=== PATIENT | female | born 1985 | race Two or more races ===

== ENCOUNTER 2017-03-26 13:54 | Emergency (ER) | payer OTHER ==
[2017-03-26 14:27] LABS: COLOR YELLOW; LEUKOCYTE ESTERASE,URINE NEGATIVE (NEGATIVE); NITRITE,URINE NEGATIVE (NEGATIVE)
[2017-03-26 14:37] LABS: MUCUS TRACE /lpf (NONE-1+)
[2017-03-26] MEDS ORDERED: ONDANSETRON DISINTEGRATING 4 MG TAB PO ONE (15:34)
[2017-03-26] MEDS ORDERED: NS 1,000 ML IV ONE (16:22)
--- NOTE | 2017-03-26 16:32 | EDPHY ---
H & P Stated Complaint: lower back pain, vomiting since yesterday--feels like previous kid stones HPI/ROS: Chief complaint: Back pain, nausea and vomiting History of present illness: This is a 31-year-old female who presents to the emergency department for evaluation of back pain and nausea and vomiting. Patient reports the onset of symptoms yesterday. They appear more pronounced on the left. She has a history kidney stones, at least 3 and they have always passed on their own without intervention needed, this feels similar to past episodes. She did have hydrocodone from a previous kidney stone which she took and symptoms have improved and she is now nearly pain free. Nausea persists. She denies precipitating factors. She denies other alleviating factors. She denies other associated signs or symptoms including no fevers, no diarrhea or constipation, no urinary symptoms. Patient is visiting from [place], she was supposed to fly home last night but because of symptoms she didn't, she will try to fly home tomorrow morning. Review of systems: A 10 point review of systems was obtained and other than described above was negative - Personal History LMP (Females 10-55): 1-7 Days Ago Current Tetanus/Diphtheria Vaccine: Unsure Current Tetanus Diphtheria and Acellular Pertussis (TDAP): Unsure - Medical/Surgical History Hx Asthma: No Hx Chronic Respiratory Disease: No Hx Diabetes: No Hx Cardiac Disease: No Hx Renal Disease: No Hx Cirrhosis: No Hx Alcoholism: No Hx HIV/AIDS: No Hx Splenectomy or Spleen Trauma: No Other PMH: kidney stones - Social History Smoking Status: Never smoked - Physical Exam Exam: General Appearance: Alert, nontoxic, resting comfortably in bed. Eyes: Pupils equal and round no pallor or injection. ENT, Mouth: Mucous membranes moist. Respiratory: There are no retractions, lungs are clear to auscultation. Cardiovascular: Regular rate and rhythm. Gastrointestinal: Abdomen is soft and nontender, no masses, bowel sounds normal. Genitourinary: No CVA tenderness. Neurological: Alert and oriented x4. Strength and sensation intact and symmetrical. Skin: Warm and dry, no rashes. Musculoskeletal: Neck is supple nontender. Extremities are symmetrical, full range of motion. Psychiatric: Patient is oriented X 3, there is no agitation. Constitutional: Initial Vital Signs Temperature (C) 36.8 C 03/26/17 14:06 Heart Rate 102 H 03/26/17 14:06 Respiratory Rate 16 03/26/17 14:06 Blood Pressure 93/68 L 03/26/17 14:06 O2 Sat (%) 97 03/26/17 14:06 O2 Delivery Mode Room Air Allergies/Adverse Reactions: cefuroxime [From Ceftin] Allergy (Verified 03/26/17 14:05) Home Medications: Medication Instructions Recorded Hydrocodon-Acetaminophen 5-325 03/26/17 Hydrocodone/APAP 5/325 [[place] 1 tab PO Q4 #10 tab 03/26/17 5/325 (*)] Ondansetron Odt [Zofran Odt 4 mg 4 mg PO Q4 #10 tab 03/26/17 (*)] Medical Decision Making ED Course/Re-evaluation: Patient is discussed with my secondary supervising physician Dr. Roselia Triana. Patient presents to the emergency depart with back pain and nausea and vomiting that has been improving. She has a history kidney stones and this feels similar. She states she has had at least 3 kidney stones over the last few years that have been evaluated with a least 3 [address] scans. She is IV hydrated and treated with Zofran with near resolution of symptoms. Baseline blood studies are largely unremarkable. Urinalysis does show blood which could be consistent with a stone. We have discussed pursuing a CT scan, we have discussed the risks and benefits, especially given the fact that she has had multiple CT scans in the recent past. She has declined. I have discussed pursuing ultrasound to look for hydronephrosis as well as evaluate for other potential causes including pelvic causes. She has declined. She will be discharged home. Home care is discussed including management of symptoms. She is flying home tomorrow and I have asked her to follow up with her doctor as soon as she gets home. Strict return precautions have been given. Patient voiced understanding and agreement with plan. Differential Diagnosis: Included but not limited to nephrolithiasis, pyelonephritis, gastritis, peptic ulcer disease, diverticulitis, colitis, ovarian cyst, ovarian torsion, an associated complications - Data Points Laboratory Results: Laboratory Results 03/26/17 16:37 03/26/17 16:37 03/26/17 03/26/17 03/26/17 16:37 16:37 16:37 WBC 9.30 10^3/uL 10^3/uL (3.80-9.50) RBC 3.87 10^6/uL L 10^6/uL (4.18-5.33) Hgb 12.2 g/dL L g/dL (12.6-16.3) Hct 36.2 % L % (38.0-47.0) MCV 93.5 fL fL (81.5-99.8) MCH 31.5 pg pg (27.9-34.1) MCHC 33.7 g/dL g/dL (32.4-36.7) RDW 12.3 % % (11.5-15.2) Plt Count 210 10^3/uL 10^3/uL (150-400) MPV 10.5 fL fL (8.7-11.7) Neut % (Auto) 78.6 % H % (39.3-74.2) Lymph % (Auto) 11.2 % L % (15.0-45.0) [place] % (Auto) 9.4 % % (4.5-13.0) Eos % (Auto) 0.1 % L % (0.6-7.6) Baso % (Auto) 0.3 % % (0.3-1.7) Nucleat RBC Rel Count 0.0 % % (0.0-0.2) Absolute Neuts (auto) 7.31 10^3/uL H 10^3/uL (1.70-6.50) Absolute Lymphs (auto) 1.04 10^3/uL 10^3/uL (1.00-3.00) Absolute Monos (auto) 0.87 10^3/uL H 10^3/uL (0.30-0.80) Absolute Eos (auto) 0.01 10^3/uL L 10^3/uL (0.03-0.40) Absolute Basos (auto) 0.03 10^3/uL 10^3/uL (0.02-0.10) Absolute Nucleated RBC 0.00 10^3/uL 10^3/uL (0-0.01) Immature Gran % 0.4 % % (0.0-1.1) Immature Gran # 0.04 10^3/uL 10^3/uL (0.00-0.10) Sodium 136 mEq/L mEq/L (134-144) Potassium 3.6 mEq/L mEq/L (3.5-5.2) Chloride 101 mEq/L mEq/L (97-110) Carbon Dioxide 23 mEq/l mEq/l (22-31) Anion Gap 12 mEq/L mEq/L (8-16) BUN 15 mg/dL mg/dL (7-23) Creatinine 0.7 mg/dL mg/dL (0.6-1.0) Estimated GFR > 60 Glucose 95 mg/dL mg/dL (70-100) Calcium 8.7 mg/dL mg/dL (8.5-10.4) Total Bilirubin 0.7 mg/dL mg/dL (0.1-1.4) Conjugated Bilirubin 0.2 mg/dL mg/dL (0.0-0.5) Unconjugated Bilirubin 0.5 mg/dL mg/dL (0.0-1.1) AST 26 IU/L IU/L (14-46) ALT 26 IU/L IU/L (9-52) Alkaline Phosphatase 54 IU/L IU/L (38-126) Total Protein 7.1 g/dL g/dL (6.3-8.2) Albumin 4.2 g/dL g/dL (3.5-5.0) Lipase 27 IU/L IU/L (23-300) Beta HCG, Qual NEGATIVE Urine Color Urine Appearance Urine pH Ur Specific [place] Urine Protein Urine Ketones Urine Blood Urine Nitrate Urine Bilirubin Urine Urobilinogen Ur Leukocyte Esterase Urine RBC Urine WBC Ur Epithelial Cells Urine Mucus Urine Glucose 03/26/17 14:21 WBC RBC Hgb Hct MCV MCH MCHC RDW Plt Count MPV Neut % (Auto) Lymph % (Auto) L[place] % (Auto) Eos % (Auto) Baso % (Auto) Nucleat RBC Rel Count Absolute Neuts (auto) Absolute Lymphs (auto) Absolute Monos (auto) Absolute Eos (auto) Absolute Basos (auto) Absolute Nucleated RBC Immature Gran % Immature Gran # Sodium Potassium Chloride Carbon Dioxide Anion Gap BUN Creatinine Estimated GFR Glucose Calcium Total Bilirubin Conjugated Bilirubin Unconjugated Bilirubin AST ALT Alkaline Phosphatase Total Protein Albumin Lipase Beta HCG, Qual Urine Color YELLOW Urine Appearance HAZY Urine pH 5.0 (5.0-7.5) Ur Specific [place] 1.028 (1.002-1.030) Urine Protein NEGATIVE (NEGATIVE) Urine Ketones NEGATIVE (NEGATIVE) Urine Blood 1+ H (NEGATIVE) Urine Nitrate NEGATIVE (NEGATIVE) Urine Bilirubin NEGATIVE (NEGATIVE) Urine Urobilinogen NEGATIVE EU EU (0.2-1.0) Ur Leukocyte Esterase NEGATIVE (NEGATIVE) Urine RBC 5-10 /hpf H /hpf (0-3) Urine WBC 1-3 /hpf /hpf (0-3) Ur Epithelial Cells TRACE /lpf /lpf (NONE-1+) Urine Mucus TRACE /lpf /lpf (NONE-1+) Urine Glucose NEGATIVE (NEGATIVE) Medications Given: Discontinued Medications Sodium Chloride (Ns) 1,000 mls @ 0 mls/hr IV EDNOW ONE; Wide Open PRN Reason: Protocol Stop: 03/26/17 16:23 Last Admin: 03/26/17 16:40 Dose: 1,000 mls Ondansetron HCl (Zofran Odt) 4 mg PO EDNOW ONE Stop: 03/26/17 15:35 Last Admin: 03/26/17 15:36 Dose: 4 mg Departure - Departure Disposition: Home, Routine, Self-Care Clinical Impression: Flank pain Hematuria Qualifiers: Hematuria type: unspecified type Qualified Code(s): R31.9 - Hematuria, unspecified Condition: Good Instructions: Hematuria (ED), Flank Pain (ED) Additional Instructions: Follow-up with your own doctor when you return home tomorrow In regards to pain control see the following: Use ibuprofen [600] mg [3] times a day for the next 2-3 days for pain In addition You have been prescribed [[place]] for pain. [[place]] contains Tylenol, do not take extra Tylenol/acetaminophen/Apap with it. It is sedating. You can use Zofran as needed for nausea and vomiting If symptoms worsen or new symptoms develop please go to the closest emergency room for recheck Referrals: NONE *PRIMARY CARE P,. [Primary Care Provider] - As per Instructions [facility],. [Clinic] - As per Instructions Prescriptions: Hydrocodone/APAP 5/325 [[place] 5/325 (*)] 1 tab PO Q4 #10 tab Ondansetron Odt [Zofran Odt 4 mg (*)] 4 mg PO Q4 #10 tab
[2017-03-26 16:49] LABS: % IMMATURE GRANULYOCYTES 0.4 % (0.0-1.1); ABSOLUTE IMMATURE GRANULOCYTES 0.04 10^3/uL (0.00-0.10); ADD DIFF? NO; ADD MORPH? NO; ADD SCAN? NO; ATYPICAL LYMPHOCYTE FLAG 0 (0-99); FRAGMENT RBC FLAG 0 (0-99); HEMATOCRIT 36.2 % (38.0-47.0); HEMOGLOBIN 12.2 g/dL (12.6-16.3); LEFT SHIFT FLG 10 (0-99); LIPEMIA HEMOLYSIS FLAG 80 (0-99); MEAN CELL HEMOGLOBIN 31.5 pg (27.9-34.1); MEAN CELL HEMOGLOBIN CONCENTR. 33.7 g/dL (32.4-36.7); MEAN CELL VOLUME 93.5 fL (81.5-99.8); MEAN PLATELET VOLUME 10.5 fL (8.7-11.7); PLATELET CLUMPS FLAG 0 (0-99); PLATELET COUNT 210 10^3/uL (150-400); RED BLOOD CELL COUNT 3.87 10^6/uL (4.18-5.33); RED CELL DISTRIBUTION WIDTH 12.3 % (11.5-15.2)
[2017-03-26 17:01] LABS: ALANINE AMINOTRANSFERASE 26 IU/L (9-52); ALBUMIN 4.2 g/dL (3.5-5.0); ALKALINE PHOSPHATASE 54 IU/L (38-126); ANION GAP 12 mEq/L (8-16); ASPARTATE AMINOTRANSFERASE 26 IU/L (14-46); BILIRUBIN,TOTAL 0.7 mg/dL (0.1-1.4); BILIRUBIN-CONJUGATED 0.2 mg/dL (0.0-0.5); BILIRUBIN-UNCONJUGATED 0.5 mg/dL (0.0-1.1); CALCIUM 8.7 mg/dL (8.5-10.4); CARBON DIOXIDE 23 mEq/l (22-31); CHLORIDE 101 mEq/L (97-110); CREATININE 0.7 mg/dL (0.6-1.0); GLOMERULAR FILTRATION RATE > 60; GLUCOSE 95 mg/dL (70-100); POTASSIUM 3.6 mEq/L (3.5-5.2); SODIUM 136 mEq/L (134-144); TOTAL PROTEIN 7.1 g/dL (6.3-8.2)
[2017-03-26 17:40] VITALS: RESP 20
[2017-03-26 17:50] VITALS: BP 97/69; PULSE 72; TEMP 98.1; O2SAT 99
== END 2017-03-26 17:51 | disposition home or self-care (01) ==
DX: R31.9 Hematuria, unspecified (principal); R10.9 Unspecified abdominal pain; E86.9 Volume depletion, unspecified